=== PATIENT | female | born 1980 | race Caucasian/White ===

== ENCOUNTER 2019-10-27 13:51 | Inpatient (IN) | payer BC, OTHER ==
[~2019-10-27] VITALS: Ht 160 cm; Wt 109.8 kg
[~2019-10-27 13:51] MED LIST: DOXYCYCLINE 10100 MG PO; HUMALOG100 UNIT/2 SQ; KEFLEX500 MG PO; LANTUS100 UNIT/M SUBQ; NORCO 5-325 TA1 EACH PO
[2019-10-27 13:55] VITALS: BP 143/82
[2019-10-27] MEDS ORDERED: TOUJEO MAX300 UNIT/1 SUBQ (14:03)
[2019-10-27] MEDS ORDERED: GLIPIZIDE 10 MG10 MG PO (14:04)
[2019-10-27] MEDS ORDERED: PROTONIX40 M2 PO (14:05)
[2019-10-27 14:44] LABS: ABSOLUTE LYMPHOCYTES 0.8 thou/uL (0.8-5.3); ABSOLUTE MONOCYTES 0.7 thou/uL (0.0-1.2); ABSOLUTE NEUTROPHILS 4.1 thou/uL (1.6-8.1); BASOPHILS 0.5 %; EOSINOPHILS 0.8 %; HEMATOCRIT 40.9 % (37.0-47.0); HEMOGLOBIN 13.8 gm/dL (12.0-15.0); LYMPHOCYTES 14.7 %; MCH 28.8 pg (26.0-34.0); MCHC 33.7 g/dL (28.0-37.0); MCV 85.4 fL (80.0-100.0); MONOCYTES 11.9 %; MPV 8.7 fl. (7.2-11.1); NUCLEATED RBCS 0 /100WBC; PLATELET COUNT* 179 thou/uL (150-400); POLYS 72.1 %; RBC 4.79 mil/uL (4.20-5.00); RDW-CV 13.6 % (10.5-14.5); WBC 5.7 thou/uL (4.0-11.0)
[2019-10-27 14:54] LABS: CALCIUM 7.8 mg/dL (8.5-10.1); CREATININE 0.8 mg/dL (0.6-1.3); POTASSIUM 3.8 mmol/L (3.5-5.1)
[2019-10-27 15:07] LABS: ALBUMIN 2.8 g/dL (3.4-5.0); TOTAL BILIRUBIN 1.3 mg/dL (<0.1-1.0); TOTAL PROTEIN 6.8 g/dL (6.4-8.2)
[2019-10-27 15:10] LABS: INFLUENZA A ANTIGEN Positive (Negative); INFLUENZA B ANTIGEN Negative (Negative)
--- NOTE | 2019-10-27 16:08 | EKG ---
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1980 Requested By: Soha Campbell Order Number: [id number] MD: Deonte Beebe Measurements Intervals [place] Rate: 125 P: 50 [place]: 139 QRS: 66 QRSD: 86 T: 2 QT: 305 QTc: 440 Interpretive Statements Sinus tachycardia Borderline T abnormalities, inferior leads Baseline wander in lead(s) III,V1,V3,V4,V5,V6 Compared to ECG 10/24/2014 09:37:11 T-wave abnormality now present Sinus rate has increased Electronically Signed On 10-27-2019 16:07:57 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
[2019-10-27 20:48] VITALS: BP 148/81
[2019-10-27 21:00] VITALS: BP 136/77
[2019-10-28] VITALS: BP 126/65
[2019-10-28 04:00] VITALS: BP 111/58
[2019-10-28 05:24] LABS: HEMATOCRIT 39.9 % (37.0-47.0); HEMOGLOBIN 13.5 gm/dL (12.0-15.0); MCH 28.9 pg (26.0-34.0); MCHC 33.8 g/dL (28.0-37.0); MCV 85.4 fL (80.0-100.0); MPV 8.5 fl. (7.2-11.1); RBC 4.68 mil/uL (4.20-5.00); RDW-CV 13.4 % (10.5-14.5); WBC 5.1 thou/uL (4.0-11.0)
[2019-10-28 05:43] LABS: ALBUMIN 2.7 g/dL (3.4-5.0); CALCIUM 8.1 mg/dL (8.5-10.1); CREATININE 0.6 mg/dL (0.6-1.3); MAGNESIUM 1.6 mg/dL (1.8-2.4); POTASSIUM 4.4 mmol/L (3.5-5.1); TOTAL BILIRUBIN 0.9 mg/dL (<0.1-1.0); TOTAL PROTEIN 6.9 g/dL (6.4-8.2)
[2019-10-28 08:00] VITALS: BP 131/80
[2019-10-28 12:00] VITALS: BP 140/82
[2019-10-28 16:30] VITALS: BP 120/69
[2019-10-28 20:00] VITALS: BP 158/85
[2019-10-29] VITALS: BP 108/57
[2019-10-29 04:00] VITALS: BP 108/66
[2019-10-29 05:32] LABS: HEMOGLOBIN 13.2 gm/dL (12.0-15.0); MCH 28.4 pg (26.0-34.0); MCHC 33.1 g/dL (28.0-37.0); MCV 85.8 fL (80.0-100.0); MPV 8.1 fl. (7.2-11.1); RBC 4.67 mil/uL (4.20-5.00); RDW-CV 13.8 % (10.5-14.5); WBC 12.4 thou/uL (4.0-11.0)
[2019-10-29 05:50] LABS: ALBUMIN 2.7 g/dL (3.4-5.0); CALCIUM 8.5 mg/dL (8.5-10.1); CREATININE 0.8 mg/dL (0.6-1.3); POTASSIUM 4.1 mmol/L (3.5-5.1); TOTAL BILIRUBIN 0.5 mg/dL (<0.1-1.0); TOTAL PROTEIN 7.1 g/dL (6.4-8.2)
[2019-10-29 08:00] VITALS: BP 130/77
[2019-10-29] MEDS ORDERED: PROAIR HFA8.5 GM INH (09:16)
[2019-10-29] MEDS ORDERED: LEVAQUIN 500 M500 M3 PO (09:16)
[2019-10-29] MEDS ORDERED: PREDNISONE 20 M20 MG PO (09:16)
[2019-10-29] MEDS ORDERED: TAMIFLU75 MG PO (09:16)
[2019-10-29 13:15] VITALS: BP 130/77
--- NOTE | 2019-10-30 14:10 | EKG ---
[place] [address] ELECTROCARDIOGRAM REPORT Name: DAWSON MARTINEZ Room: [address] DIS IN .R.#: [id number] Admission: 10/27/19 Attend Phys: Vivian Coronado MD Discharge: 10/29/19 Date of : 78 Report #: [id number] THIS REPORT FOR: //name// 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1980 Requested By: Soha Campbell Order Number: [id number] Reading MD: All Paredes Measurements Intervals [place] Rate: 125 P: 37 [place]: 95 QRS: 38 QRSD: 85 T: -9 QT: 316 QTc: 456 Interpretive Statements Sinus tachycardia Borderline T abnormalities, inferior leads Baseline wander in lead(s) III Compared to ECG 10/27/2019 13:59:40 No significant changes Electronically Signed On 10-30-2019 14:09:18 MANAGER AIR by All Paredes [email or web address] <ELECTRONICALLY SIGNED> By: All Paredes MD, FAC 10/30/19 1409 14 14 All Paredes MD, [facility] /EPI
== END 2019-10-29 13:30 | disposition home or self-care (01) | DRG 871 ==
LOC: M.ERS 13:51 → M.TBA-ER 16:46 → M.2W 16:46
PROVIDERS: Nurse Practitioner Family; ADMIT Internal Medicine
DX: A41.3 Sepsis due to Hemophilus influenzae (principal); J96.01 Acute respiratory failure with hypoxia; J10.00 Influenza due to other identified influenza virus with unspecified type of pneumonia; J45.901 Unspecified asthma with (acute) exacerbation; E11.9 Type 2 diabetes mellitus without complications; R65.20 Severe sepsis without septic shock; E78.5 Hyperlipidemia, unspecified; K58.9 Irritable bowel syndrome, unspecified; K21.9 Gastro-esophageal reflux disease without esophagitis; Z79.4 Long term (current) use of insulin; Z79.84 Long term (current) use of oral hypoglycemic drugs; Z79.899 Other long term (current) drug therapy; Z88.6 Allergy status to analgesic agent; Z88.1 Allergy status to other antibiotic agents; Z88.5 Allergy status to narcotic agent; Z88.0 Allergy status to penicillin; Z88.2 Allergy status to sulfonamides; Z91.09 Other allergy status, other than to drugs and biological substances; Z79.51 Long term (current) use of inhaled steroids

== ENCOUNTER 2020-01-14 19:55 | Emergency (ER) | payer BC, OTHER ==
[~2020-01-14] VITALS: Ht 160 cm; Wt 104.3 kg
[~2020-01-14 19:55] MED LIST changes: +GLIPIZIDE 10 MG10 MG PO; +LEVAQUIN 500 M500 M3 PO; +PREDNISONE 20 M20 MG PO; +PROAIR HFA8.5 GM INH; +PROTONIX40 M2 PO; +TAMIFLU75 MG PO; +TOUJEO MAX300 UNIT/1 SUBQ
[2020-01-14] MEDS ORDERED: ATIVAN0.5 M1 PO (22:33)
[2020-01-14 22:58] VITALS: BP 118/68
--- NOTE | 2020-01-15 11:00 | EKG ---
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
== END 2020-01-14 23:27 | disposition home or self-care (01) ==
LOC: M.ERS 19:55
DX: F41.9 Anxiety disorder, unspecified (principal); J45.909 Unspecified asthma, uncomplicated; E11.9 Type 2 diabetes mellitus without complications; K21.9 Gastro-esophageal reflux disease without esophagitis; E78.5 Hyperlipidemia, unspecified; Z88.6 Allergy status to analgesic agent; Z88.1 Allergy status to other antibiotic agents; Z88.8 Allergy status to other drugs, medicaments and biological substances; Z88.2 Allergy status to sulfonamides; Z98.51 Tubal ligation status; Z79.4 Long term (current) use of insulin

== ENCOUNTER 2020-02-03 23:28 | Emergency (ER) | payer BC, OTHER ==
[~2020-02-03] VITALS: Ht 160 cm; Wt 102.1 kg
[~2020-02-03 23:28] MED LIST changes: +ATIVAN0.5 M1 PO
[2020-02-04] LABS: ABSOLUTE BASOPHILS 0.1 thou/uL (0.0-0.2); ABSOLUTE EOSINOPHILS 0.1 thou/uL (0.0-0.7); ABSOLUTE LYMPHOCYTES 3.8 thou/uL (0.8-5.3); ABSOLUTE MONOCYTES 0.9 thou/uL (0.0-1.2); ABSOLUTE NEUTROPHILS 5.6 thou/uL (1.6-8.1); BASOPHILS 1.1 %; EOSINOPHILS 0.5 %; HEMATOCRIT 43.3 % (37.0-47.0); HEMOGLOBIN 14.8 gm/dL (12.0-15.0); LYMPHOCYTES 36.2 %; MCH 29.1 pg (26.0-34.0); MCHC 34.3 g/dL (28.0-37.0); MCV 84.8 fL (80.0-100.0); MONOCYTES 8.9 %; MPV 8.5 fl. (7.2-11.1); NUCLEATED RBCS 0 /100WBC; PLATELET COUNT* 213 thou/uL (150-400); POLYS 53.3 %; RDW-CV 14.4 % (10.5-14.5); WBC 10.5 thou/uL (4.0-11.0)
[2020-02-04 00:04] LABS: CALCIUM 8.6 mg/dL (8.5-10.1); CREATININE 0.8 mg/dL (0.6-1.3); POTASSIUM 3.8 mmol/L (3.5-5.1)
[2020-02-04 00:09] LABS: ALBUMIN 3.4 g/dL (3.4-5.0); TOTAL BILIRUBIN 1.6 mg/dL (<0.1-1.0); TOTAL PROTEIN 7.7 g/dL (6.4-8.2)
[2020-02-04 00:23] LABS: SALICYLATE < 2.8 mg/dL (2.8-20.0)
[2020-02-04 00:27] LABS: ACETAMINOPHEN < 2 ug/mL (10-30); ALCOHOL < 10 mg/dL (<10)
[2020-02-04 01:19] LABS: URINE BILIRUBIN NEGATIVE (Negative); URINE BLOOD NEGATIVE (Negative); URINE CLARITY CLEAR; URINE COLOR YELLOW; URINE GLUCOSE-RANDOM 2+ (Negative); URINE KETONES 2+ (Negative); URINE LEUKOCYTES-REFLEX NEGATIVE (Negative); URINE NITRITE-REFLEX NEGATIVE (Negative); URINE PROTEIN NEGATIVE (Negative); URINE SPECIFIC GRAVITY 1.025 (1.005-1.030); URINE UROBILINOGEN 0.2 E.U./dl (0.2-1.0)
[2020-02-04 01:26] LABS: AMP/METHAMP Negative (Negative); BARBITURATES Negative (Negative); BENZODIAZEPINES Negative (Negative); COCAINE Negative (Negative); METHADONE Negative (Negative); OPIATES Negative (Negative); PCP Negative (Negative); THC Negative (Negative)
[2020-02-04] MEDS ORDERED: ATIVAN0.5 M1 PO (03:28)
[2020-02-04 04:16] VITALS: BP 105/66
--- NOTE | 2020-02-05 14:52 | EKG ---
[place] [address] ELECTROCARDIOGRAM REPORT Name: VALE MARTINEZMELGENARO PATEL Room: [facility]#: [id number] Admission: 02/03/20 Attend Phys: Discharge: 02/04/20 Date of : 78 Date of Service: 02/03/20 2333 Report #: [id number] THIS REPORT FOR: //name// 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1980 Requested By: Judy Bhatia Order Number: [id number] Chaparro MD: Deonte Beebe Measurements Intervals [place] Rate: 128 P: 45 [place]: 132 QRS: 73 QRSD: 82 T: -12 QT: 341 QTc: 498 Interpretive Statements Sinus tachycardia Borderline T abnormalities, diffuse leads Borderline prolonged QT interval Baseline wander in lead(s) V3 Compared to ECG 01/14/2020 19:59:13 No significant changes Electronically Signed On 02-05-2020 14:50:46 CDT by Deonte Beebe [email or web address] <ELECTRONICALLY SIGNED> By: Deonte Beebe MD, [facility] 02/05/20 1450 2333 2333 Deonte Beebe MD, [facility] /EPI
== END 2020-02-04 04:17 | disposition home or self-care (01) ==
LOC: M.ERS 23:28
PROVIDERS: Emergency Medicine
DX: F41.9 Anxiety disorder, unspecified (principal); E11.9 Type 2 diabetes mellitus without complications; E78.5 Hyperlipidemia, unspecified; K21.9 Gastro-esophageal reflux disease without esophagitis; K58.9 Irritable bowel syndrome, unspecified; J45.909 Unspecified asthma, uncomplicated; Z98.51 Tubal ligation status; Z88.0 Allergy status to penicillin; Z88.1 Allergy status to other antibiotic agents; Z88.2 Allergy status to sulfonamides; Z88.6 Allergy status to analgesic agent

== ENCOUNTER 2020-04-06 11:22 | Emergency (ER) | payer BC ==
[~2020-04-06] VITALS: Ht 160 cm; Wt 97.5 kg
[2020-04-06 11:56] LABS: URINE BILIRUBIN NEGATIVE (Negative); URINE BLOOD NEGATIVE (Negative); URINE CLARITY CLEAR; URINE COLOR YELLOW; URINE GLUCOSE-RANDOM 3+ (Negative); URINE KETONES 1+ (Negative); URINE LEUKOCYTES-REFLEX NEGATIVE (Negative); URINE NITRITE-REFLEX NEGATIVE (Negative); URINE PROTEIN NEGATIVE (Negative); URINE SPECIFIC GRAVITY >= 1.030 (1.005-1.030); URINE UROBILINOGEN 0.2 E.U./dl (0.2-1.0)
[2020-04-06 13:23] VITALS: BP 136/64
== END 2020-04-06 13:24 | disposition home or self-care (01) ==
LOC: M.ERS 11:22
PROVIDERS: Emergency Medicine Emergency Medical Services
DX: M54.5 Low back pain (principal); M25.521 Pain in right elbow; M25.551 Pain in right hip; R10.30 Lower abdominal pain, unspecified; E11.9 Type 2 diabetes mellitus without complications; E78.5 Hyperlipidemia, unspecified; K21.9 Gastro-esophageal reflux disease without esophagitis; J45.909 Unspecified asthma, uncomplicated; G47.30 Sleep apnea, unspecified; Z88.2 Allergy status to sulfonamides; Z88.1 Allergy status to other antibiotic agents; Z88.5 Allergy status to narcotic agent; Z88.8 Allergy status to other drugs, medicaments and biological substances; Z79.4 Long term (current) use of insulin; Z98.51 Tubal ligation status; Z79.899 Other long term (current) drug therapy; W10.9XXA Fall (on) (from) unspecified stairs and steps, initial encounter; Y93.89 Activity, other specified; Y92.89 Other specified places as the place of occurrence of the external cause; Y99.8 Other external cause status